=== PATIENT | female | born 1995 | race Caucasian/White ===

== ENCOUNTER 2016-12-05 11:44 | Emergency (ER) | payer MEDICAID, OTHER ==
[2016-12-05 12:13] VITALS: BP 132/71
--- OUTSIDE RECORDS SUMMARY | 2016-12-05 14:21 | XMS REPORT | Continuity of Care Document ---
:1995 Author Organization [facility] ([facility]) Address [address] [place] [address] Phone [phone] Care Team Providers Name Role Phone Unavailable Primary Care Provider Unavailable Source Comments This disclosure is being made pursuant to the Care Everywhere program, applicable federal and state laws, and may not contain all informaitonavailable regarding this patient.[facility] ([facility]) Active Allergies and Adverse Reactions Not on File Current Medications Not on file Active Problems Not on file Social History Tobacco Use Types Packs/Day Years Used Date Never Assessed Plan of Care Health Maintenance Due Date Last Done Comments Hepatitis B Vaccine (1 of 3 - Primary Series) 1993 HPV Vaccine (1 of 3 - Female/Unknown 3 Dose Series) 2004 Tdap Vaccine 2004 Cervical Cancer Screening 2011 Lipid Disorder Screening 2011 MMR Vaccine 2011 Td Vaccine 2011 Varicella Vaccine (1 of 2 - Adult - No Evidence of 2011 Immunity) Influenza Vaccine: Seasonal (#1) 05/17/2016 Results from Last 3 Months Not on file
--- NOTE | 2016-12-05 14:43 | ERNOTE ---
ENT [facility] Date of Service: 12/05/16 Presenting Symptoms: eye pain Time Seen by Provider: 12/05/16 13:45 Source: patient Exam Limitations: no limitations - Immun/Allergies/Home Medications Immunizations: IMMUNIZATION HX Immunizations Up to Date Yes History of Influenza Vaccine No Hx Pneumococcal Vaccination No Allergies/Adverse Reactions: Allergies Allergy/AdvReac Type Severity Reaction Status Date / Time amoxicillin trihydrate Allergy rash Verified 12/05/16 12:13 [From Augmentin] potassium clavulanate Allergy Verified 12/05/16 12:13 [From Augmentin] Sulfa (Sulfonamide Allergy rash/bliste Verified 12/05/16 12:13 Antibiotics) rs Home Medications: HOME MEDICATIONS Vit No.128/Iron/FA [Eql Vitamin Tablet] 1 each PO DAILY [Last Taken 05/28/15 10:00] - History of Present Illness Narrative: 21 year old female presents to ED with complaints of left eye reddened with clear drainage. Denies fever, chills, burning or itching. States that she went to bed without complaints last night and noticed it when she awoke 0300 this am. Patient is approximately 2 months , confirmed home test and awaiting OBGYN follow up A0 Date (Duration): 12/05/16 Time (Timing): 03:00 Severity: Present: mild ENT Location: Present: eye (L) Prearrival Treatment: Present: no prearrival treatment Modifying Factors - Improves: Reports: nothing Modifying Factors - Worsens: Reports: nothing Associated Symptoms - ENT: Denies: fever, malaise, poor fluid intake, poor solid intake, cough, voice change, sore throat, drooling, nasal congestion/ drainage, facial pain/swelling, tooth pain, jaw swelling, ear drainage, headache , foreign body, trauma Review of Systems - Review of Systems Constitutional: Present: no symptoms reported. Absent: recent illness, fever, chills, diaphoresis, weakness, fatigue, malaise EYE: Present: eye discharge - clear drainage. Absent: eye pain, blurred vision , double vision, vision changes ENT: Present: no symptoms reported. Absent: ear pain, ear discharge, nose congestion, nasal drainage, sore throat, throat swelling Respiratory: Present: no symptoms reported. Absent: shortness of breath, cough Cardiology: Present: no symptoms reported. Absent: chest pain, palpitations Gastrointestinal/Abdominal: Present: no symptoms reported. Absent: nausea, vomiting, diarrhea Genitourinary: Present: no symptoms reported Musculoskeletal: Present: no symptoms reported Skin: Present: no symptoms reported. Absent: rash, dryness Neurological: Present: no symptoms reported Endocrine: Present: no symptoms reported Hematologic/Lymphatic: Present: no symptoms reported Psych: Present: no symptoms reported - Patient's Past Medical History Patient History - Medical: Anemia Patient History - Cardiac/Respiratory: No pertinent hx Patient History - Cancer: No Hx of Cancer Patient History - Other: None LMP (Calendar): 09/22/14 - Family History Grandmother-Maternal Family History - Medical: Diabetes Type 2 Grandmother-Paternal Family History - Medical: Diabetes Type 2 Grandfather-Paternal Family History - Medical: Diabetes Type 2 - Social History Living Situations: parents Abuse History: No History of abuse Psych History: No pertinent hx Smoking Status: Never smoker Have you smoked in the past 12 months: No Alcohol Use: none Drug Use: none - Immunizations Immunizations Up to Date: Yes Hx Pneumococcal Vaccination: No History of Influenza Vaccine: No Physical Exam - Physical Exam General Appearance: Present: wd/wn, alert, no apparent distress Eye Exam: Normal inspection: left - reddened sclera, PERRL: bilateral Ears, Nose, Throat: Present: normal ENT inspection, hearing grossly normal, normal pharynx. Absent: sinus pain/drainage, pharyngeal erythema, pharyngeal swelling, tonsillar exudate, tonsillar swelling, dry mucous membranes Neck: Present: normal inspection, nontender. Absent: lymphadenopathy (R), lymphadenopathy (L) Respiratory: Present: no respiratory distress, normal breath sounds, no accessory muscle use, chest nontender, lungs clear Cardiovascular/Chest: Present: regular rate, rhythm, no murmur, normal peripheral pulses Peripheral Pulses: N=norm/S=strong/W=weak/B=bound/A=absent: Radial (R): Normal, Radial (L): Normal Gastrointestinal/Abdominal: Present: normal bowel sounds, nontender, nondistended, soft, no organomegaly Rectal Exam: Present: deferred Back Exam: Present: normal inspection Extremity Exam: Present: normal inspection, non-tender, no edema, normal range of motion Neurological Exam: Present: alert, oriented, normal mood/affect, no motor/ sensory deficits Skin Exam: Present: normal color, warm/dry. Absent: diaphoresis, cyanosis Lymphatic Exam: Present: no adenopathy ED Progress - Vital Signs Patient's Vital Signs:: I have reviewed the patient's vital signs. Vital Signs: Vital Signs 12/05/16 12:10 Temperature 35.8 C L Pulse Rate 85 Respiratory 14 Rate Blood Pressure 132/71 O2 Sat by Pulse 99 Oximetry - Progress/Reassessment Chief Complaint: Eye Injury/Trauma Departure Clinical Impression: Conjunctivitis due to adenovirus, left eye - Departure Disposition: Home Follow Up Needed Condition: Good Instructions: Adenovirus Additional Instructions: Use Liquid Tears eye drops four times a day. Follow up with your doctor this week.
== END 2016-12-05 14:43 | disposition home or self-care (01) ==
LOC: ER 11:44
DX: B30.1 Conjunctivitis due to adenovirus (principal)

== ENCOUNTER 2017-07-12 09:04 | Inpatient (IN) | payer MEDICAID ==
[2017-07-12] MEDS ORDERED: RINGER'S SOLUTION,LACTATED 1,000 ML IV ONE ×2 (09:11→10:19)
[2017-07-12] MEDS ORDERED: DEXTROSE 5%-LACTATED RINGERS 1,000 ML IV PRN (09:11)
[2017-07-12] MEDS ORDERED: OXYTOCIN/DEXTROSE 5%-WATER 30 UNITS/500 ML BAG IV ONE ×2 (09:11→09:53)
[2017-07-12] MEDS ORDERED: LIDOCAINE HCL 50 ML VIAL PERI PRN ×2 (09:11→10:19)
[2017-07-12] MEDS ORDERED: LIDOCAINE HCL 50 ML VIAL ONE ×2 (09:11→09:29)
[2017-07-12] MEDS ORDERED: ONDANSETRON HCL/PF 2 MG/ML VIAL IV PRN (09:11)
[2017-07-12] MEDS ORDERED: SENNOSIDES 8.6 MG TABLET PO PRN (09:53)
[2017-07-12] MEDS ORDERED: HYDROCORTISONE 30 APPL TUBE TP PRN (09:53)
[2017-07-12] MEDS ORDERED: oxyCODONE HCL/ACETAMINOPHEN 1 TAB TABLET PO PRN (09:53)
[2017-07-12] MEDS ORDERED: BISACODYL 10 MG SUPP.RECT RC PRN (09:53)
[2017-07-12] MEDS ORDERED: GLYCERIN/WITCH HAZEL LEAF 40 APPL BOX TP PRN (09:53)
[2017-07-12] MEDS ORDERED: BENZOCAINE/MENTHOL 81 SPRAY CAN TP PRN (09:53)
--- NOTE | 2017-07-12 09:56 | OR ---
Operative Report - Dictated Report Narrative: Spontaneous vaginal delivery of viable male at 0923 on 07/12/2017 with Apgars 9 and 9, weighing 3479 g in MARILYNN position. Cord clamping delayed approximately 1 minute Placenta delivered complete, intact, with three vessel cord Estimated blood loss: 100 mL Lacerations: 4 cm second degree vaginal laceration repaired with 3-0 Vicryl Rapide Anesthesia: Local using 10 mL of 1% lidocaine
[2017-07-12] MEDS ORDERED: FLU VACC QS2017-18(6MOS UP)/PF 60 MCG/0.5 ML SYRINGE IM ONE (10:05)
[2017-07-12] MEDS: IBUPROFEN 800 MG TABLET PO PRN ×2 (14:56→21:18)
[2017-07-12] MEDS: oxyCODONE HCL/ACETAMINOPHEN 1 TAB TABLET PO PRN (21:18)
[2017-07-12] MEDS: DOCUSATE SODIUM 100 MG CAPSULE PO SCH (21:19)
--- NOTE | 2017-07-13 08:45 | PN ---
Subjective - Date and Time Seen Date: 07/13/17 Time: 08:45 Objective - Vitals Vitals: Last Vital Signs Temp 36.1 C L 07/13/17 07:25 Pulse 73 07/13/17 07:25 Resp 18 07/13/17 07:25 BP 117/75 07/13/17 07:25 Pulse Ox 99 07/13/17 07:25 Patient denies complaints. Lochia wnl Abdomen - soft, nontender Uterus - firm, at umbilicus - 1 No calf tenderness Impression: day #1 - s/p spontaneous vaginal delivery. Plan: Continue routine care
[2017-07-13] MEDS: DOCUSATE SODIUM 100 MG CAPSULE PO SCH ×2 (09:21→21:30)
[2017-07-13] MEDS: IBUPROFEN 800 MG TABLET PO PRN (21:30)
[2017-07-13] MEDS: oxyCODONE HCL/ACETAMINOPHEN 1 TAB TABLET PO PRN (21:30)
[2017-07-14 08:24] VITALS: BP 127/79
[2017-07-14] MEDS: DOCUSATE SODIUM 100 MG CAPSULE PO SCH (09:25)
--- NOTE | 2017-07-14 11:50 | PN ---
Subjective - Date and Time Seen Date: 07/14/17 Time: 11:50 Objective - Vitals Vitals: Last Vital Signs Temp 37 C 07/14/17 08:12 Pulse 74 07/14/17 08:12 Resp 16 07/14/17 08:12 BP 127/79 07/14/17 08:12 Pulse Ox 98 07/14/17 08:12 Patient denies complaints. Lochia wnl Abdomen - soft, nontender Uterus - firm, at umbilicus - 2 No calf tenderness Impression: day #2 - s/p spontaneous vaginal delivery. Plan: Routine discharge instructions
== END 2017-07-14 14:50 | disposition home or self-care (01) | DRG 775 ==
LOC: OB 09:04
PROVIDERS: ADMIT Obstetrics & Gynecology; ATTEND Obstetrics & Gynecology
PROC: 10E0XZZ Delivery of Products of Conception, External Approach (ICD-10-PCS; principal; 2017-07-12)
PROC: 0KQM0ZZ Repair Perineum Muscle, Open Approach (ICD-10-PCS; 2017-07-12)
PROC: 4A1HXCZ Monitoring of Products of Conception, Cardiac Rate, External Approach (ICD-10-PCS; 2017-07-12)
DX: O70.1 Second degree perineal laceration during delivery (principal); Z37.0 Single live birth; Z3A.39 39 weeks gestation of pregnancy; Z23 Encounter for immunization
CPT/HCPCS: 59025; 90686; G0008